=== PATIENT | male | born 2000 | race Caucasian/White ===

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

== ENCOUNTER 2021-06-11 04:53 | Emergency (ER) | payer SELFPAY ==
[~2021-06-11] VITALS: Ht 177.8 cm; Wt 109.1 kg
[2021-06-11 04:56] VITALS: BP 118/83; PULSE 90; TEMP 97.5
[2021-06-11] MEDS ORDERED: KAVA KAVA (05:09)
[2021-06-11] MEDS ORDERED: FLEXERIL 1010 MG/TAB PO (05:14)
== END 2021-06-11 05:39 | disposition home or self-care (01) ==
LOC: COL.ER 04:53
DX: M79.18 Myalgia, other site (principal); M79.602 Pain in left arm; M79.601 Pain in right arm
CPT/HCPCS: J1885